=== PATIENT | male | born 1980 | race Caucasian/White ===

== ENCOUNTER 2021-09-22 12:09 | Emergency (ER) | payer OTHER, SELFPAY ==
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
[2021-09-22 13:14] VITALS: BP 150/60; PULSE 82; RESP 18; TEMP 36.8; O2SAT 97; BMI 29.0
== END 2021-09-22 21:50 | disposition left against medical advice (07) ==
LOC: HO.ED 20:54
PROVIDERS: Emergency Provider Emergency Medicine
DX: R07.81 Pleurodynia (principal); M25.562 Pain in left knee
CPT/HCPCS: 71045; 73562; 99283

== ENCOUNTER 2022-05-18 10:30 | Outpatient (REF) | payer SELFPAY ==
[2022-05-18 11:08] LABS: COVID-19 Test Negative (Negative); IDNOW Serial# 16C4AD1C
== END 2022-05-18 10:31 | disposition home or self-care (01) ==
LOC: HO.LAB 10:30
PROVIDERS: Visit Provider Internal Medicine
DX: Z20.822 Contact with and (suspected) exposure to COVID-19 (principal)
CPT/HCPCS: 87635; C9803